=== PATIENT | male | born 1980 | race African-American/Black ===

== ENCOUNTER 2020-10-09 20:56 | Emergency (ER) | payer SELFPAY ==
[~2020-10-09] VITALS: Ht 177.8 cm; Wt 113.4 kg
[2020-10-09 22:44] LABS: Basophils # (auto) 0.1 10 ^3/uL (0-0.2); Basophils % (auto) 0.5 % (0.0-2.0); Eosinophils # (auto) 0.1 10 ^3/uL (0-0.8); Eosinophils % (auto) 1.1 % (0.0-7.0); Hematocrit 42.1 % (41.0-53.0); Lymphocytes # (auto) 2.1 10 ^3/uL (0.4-5.4); Lymphocytes % (auto) 17.5 % (10.0-50.0); Mean Corpuscular Hemoglobin 29.8 pg (28.0-32.0); Mean Corpuscular Hgb Conc. 35.7 g/dL (32.0-36.0); Mean Corpuscular Volume 83.6 fL (80.0-100.0); Monocytes # (auto) 1.1 10 ^3/uL (0-1.3); Monocytes % (auto) 9.6 % (0.0-12.0); Neutrophils # (auto) 8.5 10 ^3/uL (1.6-8.6); Neutrophils % (auto) 71.3 % (37.0-80.0); Nucleated Red Blood Cells % 0.1 %; Platelet Count (auto) 224 10^3/uL (140-450); Red Blood Cells 5.04 10^6/uL (4.5-5.90); White Blood Cell 11.9 10^3/uL (4.4-10.8)
[2020-10-09 23:04] LABS: Salicylate 3.1 mg/dL (2.8-20.0)
[2020-10-09 23:13] LABS: BUN/Creatinine Ratio 13.4; Blood Urea Nitrogen 18 mg/dL (7-18); Chloride 107 mmol/L (98-107); GFR African American 75 mL/min; GFR Non-African American 62 mL/min; Glucose 87 mg/dL (74-106); Potassium 3.3 mmol/L (3.5-5.1); Sodium 159 mmol/L (136-145)
[2020-10-09 23:23] LABS: Acetaminophen < 2.0 ug/mL (10-30)
[2020-10-09 23:44] LABS: Anion Gap 2 (5-15)
[2020-10-09 23:47] LABS: Carbon Dioxide 50 mmol/L (21-32)
[2020-10-10 02:29] LABS: Urine Bacteria NONE SEEN /hpf (None Seen); Urine Blood Negative /uL (Negative); Urine Hyaline Cast MOD /lpf (0 - 2); Urine Mucus FEW (None Seen); Urine WBC 8 /hpf (0 - 3)
[2020-10-10 02:39] LABS: Alcohol, Urine < 3.0 mg/dL (0-10); Amphetamine Screen, Urine POSITIVE (NEGATIVE); Barbiturate Scree,Urine NEGATIVE (NEGATIVE); Benzodiazephine Screen, Urine NEGATIVE (NEGATIVE); Cannabinoid Screen, Urine POSITIVE (NEGATIVE); Cocaine Screen, Urine NEGATIVE (NEGATIVE); Opiate Scree,Urine NEGATIVE (NEGATIVE); Phencyclidine Screen, Urine NEGATIVE (NEGATIVE)
[2020-10-10 14:02] VITALS: BP 119/75
== END 2020-10-10 14:42 | disposition home or self-care (01) ==
LOC: ER 20:56 → EDBD 20:56 → ER 10-10 14:42
DX: S06.0X9A Concussion with loss of consciousness of unspecified duration, initial encounter (principal); R41.82 Altered mental status, unspecified; G93.41 Metabolic encephalopathy; S00.03XA Contusion of scalp, initial encounter; F15.10 Other stimulant abuse, uncomplicated; W19.XXXA Unspecified fall, initial encounter; Y93.89 Activity, other specified; Y92.89 Other specified places as the place of occurrence of the external cause; Y99.8 Other external cause status
CPT/HCPCS: 36415; 70450; 80048; 80307; 80320; 80329; 81001; 83605; 85025; 85049; 87040